=== PATIENT | female | born 1995 | race Caucasian/White ===

== ENCOUNTER 2020-05-28 09:34 | Emergency (ER) | payer MEDICAID ==
[~2020-05-28] VITALS: Ht 160 cm; Wt 81.8 kg
[~2020-05-28 09:34] MED LIST: IBUP-1984 PO
[2020-05-28 09:39] VITALS: BP 140/104
[2020-05-28] MEDS ORDERED: AMOX-117 PO (10:07)
== END 2020-05-28 10:27 | disposition home or self-care (01) ==
LOC: ER 09:35
DX: K04.7 Periapical abscess without sinus (principal); Z79.899 Other long term (current) drug therapy
CPT/HCPCS: 99283

== ENCOUNTER 2023-05-16 21:04 | Emergency (ER) | payer MEDICAID ==
[~2023-05-16] VITALS: Ht 157.5 cm; Wt 95.5 kg
[2023-05-16 21:16] VITALS: TEMP 98.6
[2023-05-16] MEDS ORDERED: TETanus/Pertussis (Acell)/Diphther VAC/PF (Tdap-Adult) 0.5ml syringe IMVAC ONE (23:40)
[2023-05-16] MEDS ORDERED: LIDOcaine 1% W/epiNEPHrine 1:100,000 20ml vial IJ ONE (23:40)
[2023-05-17 00:01] VITALS: BP 161/97; PULSE 100; O2SAT 100
--- NOTE | 2023-05-17 00:26 | NUR ---
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
[2023-05-17] MEDS ORDERED: ketorolac tromethamine 15mg/ml inj. IM ONE ×2 (00:30)
[2023-05-17] MEDS ORDERED: IBUP-1984 PO (00:33)
[2023-05-17] MEDS ORDERED: AMOX-117 PO (00:33)
[2023-05-17] MEDS ORDERED: ketorolac trometh. 30mg/ml inj. IM ONE (00:35)
[2023-05-17 00:47] VITALS: RESP 18
== END 2023-05-17 01:02 | disposition home or self-care (01) ==
LOC: ER 21:05
DX: S81.851A Open bite, right lower leg, initial encounter (principal); Z79.1 Long term (current) use of non-steroidal anti-inflammatories (NSAID); Z79.2 Long term (current) use of antibiotics; W54.0XXA Bitten by dog, initial encounter; Y93.89 Activity, other specified; Y92.89 Other specified places as the place of occurrence of the external cause; Y99.8 Other external cause status
CPT/HCPCS: 12004; 73590; 90471; 90715; 96372; 99284; J1885; A6258; A6446

== ENCOUNTER 2023-06-19 16:13 | Emergency (ER) | payer MEDICAID | END 2023-06-19 16:31 | disposition left against medical advice (07) | LOC: ER 16:14 | DX: T14.8XXA Other injury of unspecified body region, initial encounter (principal); Z53.21 Procedure and treatment not carried out due to patient leaving prior to being seen by health care provider; W54.0XXA Bitten by dog, initial encounter; Y93.89 Activity, other specified; Y92.89 Other specified places as the place of occurrence of the external cause; Y99.8 Other external cause status ==

== ENCOUNTER 2025-08-10 13:24 | Emergency (ER) | payer MEDICAID ==
[~2025-08-10] VITALS: Ht 160 cm; Wt 97.7 kg
[2025-08-10 13:45] VITALS: BP 161/100; PULSE 99; RESP 15; TEMP 97.6; O2SAT 98
--- NOTE | 2025-08-10 13:57 | Physician Documentation ---
History of Present Illness ~ Chief Complaint: Staple Removal Stated Complaint: SUTURE REMOVAL Time Seen by MD: 13:40 Primary Medical Doctor: CHRISTIN RAMÍREZ [facility] 30-year-old female presents to the ED after having barbara placed on her scalp well days ago. States that she does not have any discharge fevers or increased swelling but states that the barbara are painful. Tetanus Within 5 Years: No (UNSURE) Medication Reconciliation Allergies: Coded Allergies: No Known Allergies (Unverified , 09/02/10) Scheduled PRN Ibuprofen* (Motrin*), 600 MG PO Q6 PRN Past Medical History Past Medical History: No Pertinent History Past Surgical History: no surgical history Alcohol Use: None Drug Use: none Lives In: Home Review of Systems All Other Systems at this time: Reviewed and Negative ROS As stated above in the HPI, otherwise all systems are reviewed and negative. Physical Exam Vital Signs: Temperature: 97.6, Heart Rate: 99, Respiratory Rate: 15, BP: 161/100, Pulse Oximetry: 98, Weight: 97.730 Oxygen Flow Rate: 0 Physical Exam General: Alert, no apparent distress. Neurologic: Oriented x4. Psychiatric: Normal mood and affect. Skin: Normal color, warm and dry. No edema, no ecchymosis seven barbara placed on a well approximated laceration on the anterior aspect. Lateral scalp Progress Results/Orders Results/Orders Vital Signs 08/10/25 13:45 Temp 97.6 Pulse 99 Resp 15 B/P (MAP) 161/100 Pulse Ox 98 O2 Flow Rate 0 Medical Decision Making Additional information obtaine: old records Findings [place] removed by nursing staff without difficulty patient tolerated well Differential Dx:Considerations: Include: Suture removal Departure Disposition: 01 HOME / SELF CARE / HOMELESS Impression: Primary Impression: Laceration Condition: Stable Discharge Instructions: Suture Removal, Care After Referrals: NO PRIMARY CARE PROVIDER (PCP) Signature Scribe Signature: g Attestation: Scribed for Soo Brooks Roll Tender by Soo Middleton NP . 08/10/25 15:48 SOO BROOKS NP Aug 10, 2025 13:57 MATTHIEU SHI MD Aug 10, 2025 15:43
== END 2025-08-10 14:11 | disposition home or self-care (01) ==
LOC: ER 13:25
DX: S01.01XD Laceration without foreign body of scalp, subsequent encounter (principal); X58.XXXD Exposure to other specified factors, subsequent encounter
CPT/HCPCS: 99282